=== PATIENT | male | born 1975 | race Caucasian/White ===

== ENCOUNTER 2024-02-19 03:13 | Emergency (ER) | payer OTHER ==
[~2024-02-19] VITALS: Ht 172.7 cm; Wt 104.3 kg
[2024-02-19 03:18] VITALS: TEMP 98
[2024-02-19 04:04] VITALS: PULSE 81; RESP 16; O2SAT 95
== END 2024-02-19 04:09 | disposition home or self-care (01) ==
LOC: ER 03:17
DX: R04.2 Hemoptysis (principal); G40.909 Epilepsy, unspecified, not intractable, without status epilepticus
CPT/HCPCS: 71046; 99283